=== PATIENT | female | born 1930 | race Caucasian/White ===

== ENCOUNTER 2017-07-14 10:36 | Emergency (ER) | payer MEDICARE, OTHER ==
[~2017-07-14] VITALS: Ht 157.5 cm; Wt 55.8 kg
[~2017-07-14 10:36] MED LIST: ACETAMINOPHEN-1 EAC1 PO; ACTOS15 MG; ASPIR-LOW81 MG PO; BENTYL10 MG; CEPHALEXIN500 MG PO; CIPROFLOXACIN500 M1 PO; COLESTID1 GM PO; FLEXERIL PO; GLUCOPHAGE500 MG; HYDROCODON-ACE1 EACH PO; IBUPROFEN 200200 M1 PO; IBUPROFEN 600600 M1 PO; JANUVIA25 MG PO; LIPITOR 20 MG T20 M1 PO; METFORMIN HCL500 MG PO; METOPROLOL TART25 MG PO; MULTIVITAMINS1 EAC7; NORCO 5-325 TA1 EACH PO; NORCO 7.5-3251 EACH PO; PLAVIX 75 MG TA75 MG PO; TRAMADOL 50 MG50 MG PO; VASOTEC10 MG PO; [UNRECOGNIZED DRUG - OTHER]
[2017-07-14] MEDS ORDERED: AMARYL2 MG PO (10:46)
[2017-07-14 11:14] LABS: ABSOLUTE LYMPHOCYTES 0.9 thou/uL (0.8-5.3); ABSOLUTE MONOCYTES 0.4 thou/uL (0.0-1.2); ABSOLUTE NEUTROPHILS 6.5 thou/uL (1.6-8.1); BASOPHILS 0.3 %; EOSINOPHILS 0.1 %; HEMATOCRIT 41.9 % (37.0-47.0); HEMOGLOBIN 14.5 gm/dL (12.0-15.0); LYMPHOCYTES 11.7 %; MCH 30.3 pg (26.0-34.0); MCHC 34.5 g/dL (28.0-37.0); MCV 87.9 fL (80.0-100.0); MONOCYTES 5.2 %; MPV 8.2 fl. (7.2-11.1); NUCLEATED RBCS 0 /100WBC; PLATELET COUNT* 189 thou/uL (150-400); POLYS 82.7 %; RBC 4.77 mil/uL (4.20-5.00); RDW-CV 13.5 % (10.5-14.5); WBC 7.9 thou/uL (4.0-11.0)
[2017-07-14 11:25] LABS: CALCIUM 9.5 mg/dL (8.5-10.1); CREATININE 1.1 mg/dL (0.6-1.3); POTASSIUM 4.2 mmol/L (3.5-5.1)
[2017-07-14 11:30] LABS: ALBUMIN 4.1 g/dL (3.4-5.0); TOTAL BILIRUBIN 1.2 mg/dL (<0.1-1.0)
[2017-07-14] MEDS ORDERED: ACETAMINOPHEN-1 EAC1 PO (12:47)
[2017-07-14 13:15] VITALS: BP 164/105
== END 2017-07-14 13:16 | disposition home or self-care (01) ==
LOC: M.ERS 10:36
PROVIDERS: Nurse Practitioner Family
DX: M25.552 Pain in left hip (principal); M25.512 Pain in left shoulder; R07.81 Pleurodynia; E11.9 Type 2 diabetes mellitus without complications; I10 Essential (primary) hypertension; E78.00 Pure hypercholesterolemia, unspecified; Z90.710 Acquired absence of both cervix and uterus; Z90.49 Acquired absence of other specified parts of digestive tract; Z96.641 Presence of right artificial hip joint; Z88.0 Allergy status to penicillin; Z88.6 Allergy status to analgesic agent; W01.0XXA Fall on same level from slipping, tripping and stumbling without subsequent striking against object, initial encounter; Y93.89 Activity, other specified; Y92.89 Other specified places as the place of occurrence of the external cause; Y99.8 Other external cause status

== ENCOUNTER 2017-07-23 12:27 | Inpatient (IN) | payer MEDICARE, OTHER ==
[~2017-07-23] VITALS: Ht 162.6 cm; Wt 58.7 kg
[~2017-07-23 12:27] MED LIST changes: +AMARYL2 MG PO
[2017-07-23 12:44] VITALS: BP 138/86
[2017-07-23 13:36] LABS: ABSOLUTE BASOPHILS 0.1 thou/uL (0.0-0.2); ABSOLUTE EOSINOPHILS 0.1 thou/uL (0.0-0.7); ABSOLUTE LYMPHOCYTES 1.2 thou/uL (0.8-5.3); ABSOLUTE MONOCYTES 0.4 thou/uL (0.0-1.2); ABSOLUTE NEUTROPHILS 3.9 thou/uL (1.6-8.1); BASOPHILS 1.1 %; EOSINOPHILS 1.9 %; HEMATOCRIT 39.4 % (37.0-47.0); HEMOGLOBIN 13.5 gm/dL (12.0-15.0); LYMPHOCYTES 20.7 %; MCH 30.1 pg (26.0-34.0); MCHC 34.2 g/dL (28.0-37.0); MONOCYTES 6.4 %; MPV 7.4 fl. (7.2-11.1); NUCLEATED RBCS 0 /100WBC; PLATELET COUNT* 293 thou/uL (150-400); POLYS 69.9 %; RBC 4.48 mil/uL (4.20-5.00); RDW-CV 13.3 % (10.5-14.5); WBC 5.6 thou/uL (4.0-11.0)
[2017-07-23 13:42] LABS: ANION GAP 9 mmol/L (7-16); BUN 28 mg/dL (7-18); CALCIUM 9.5 mg/dL (8.5-10.1); CHLORIDE 102 mmol/L (98-107); CO2 30 mmol/L (21-32); CREATININE 0.9 mg/dL (0.6-1.3); GLUCOSE 172 mg/dL (70-99); POTASSIUM 3.6 mmol/L (3.5-5.1); SODIUM 141 mmol/L (136-145)
[2017-07-23 13:45] LABS: APTT 28.9 Seconds (25.0-31.3)
[2017-07-23 13:54] LABS: ALBUMIN 3.9 g/dL (3.4-5.0); ALKALINE PHOSPHATASE 147 U/L (46-116); LIPASE 74 U/L (73-393); NT-PRO BRAIN NAT PEPTIDE 899 pg/mL (<300); SGOT 16 U/L (15-37); SGPT 16 U/L (30-65); TOTAL BILIRUBIN 0.8 mg/dL (<0.1-1.0); TOTAL PROTEIN 7.9 g/dL (6.4-8.2); TROPONIN-I LEVEL <0.06 ng/mL (<0.06)
[2017-07-23 14:43] LABS: URINE BILIRUBIN NEGATIVE (Negative); URINE BLOOD NEGATIVE (Negative); URINE CLARITY CLEAR; URINE COLOR YELLOW; URINE GLUCOSE-RANDOM NEGATIVE (Negative); URINE KETONES NEGATIVE (Negative); URINE LEUKOCYTES-REFLEX 3+ (Negative); URINE NITRITE-REFLEX POSITIVE (Negative); URINE PROTEIN NEGATIVE (Negative); URINE UROBILINOGEN 0.2 E.U./dl (0.2-1.0)
[2017-07-23 14:50] LABS: CASTS None Seen /LPF (None Seen); CRYSTALS None Seen /LPF (None Seen); MUCUS 0-3 Light strn/LPF (None Seen); SQUAMOUS 0-3 Few /LPF (0-3); URINE RBC >20 Many /HPF (0-2); URINE WBC-REFLEX None Seen /HPF (0-5)
--- NOTE | 2017-07-23 15:31 | EKG ---
[place] [address] ELECTROCARDIOGRAM REPORT Name: MARLON HOPKINS Room: [facility]#: [id number] Admission: 07/23/17 Attend Phys: Discharge: Date of : 32 Report #: [id number] THIS REPORT FOR: //name// [facility] ED Test Date: 2017-07-23 Test Time: 13:32:33 Pat Name: MARLON HOPKINS Department: Room: Gender: F Accounting Assistant: Pauly ALVES : 1930 Requested By: Nasim Puentes Order Number: [id number] MD: Xavier Chaves Measurements Intervals [place] Rate: 97 P: 71 HI: 176 QRS: 19 QRSD: 91 T: 161 QT: 355 QTc: 451 Interpretive Statements Sinus rhythm Probable LVH with secondary repol abnrm Compared to ECG 04/13/2015 08:40:59 Sinus tachycardia no longer present Atrial premature complex(es) no longer present Electronically Signed On 07-23-2017 15:31:14 CDT by Xavier Chaves [email or web address] <ELECTRONICALLY SIGNED> By: Xavier Chaves MD, [facility] 07/23/17 1531 1332 1332 Xavier Chaves MD, [facility] /EPI
[2017-07-23 17:30] VITALS: BP 140/78
[2017-07-23 17:33] VITALS: BP 165/92
[2017-07-23] MEDS ORDERED: ALEVE220 MG PO (19:05)
[2017-07-23] MEDS ORDERED: UNICOMPLEX M TA1 TA1 PO (19:05)
--- NOTE | 2017-07-23 20:48 | NUR ---
ASSUMED CARES OF PT AT 1730. PT TRANSFERRED FROM E.D. BED TO ROOM BED WITH 3 PEOPLE ASSIST AND DRAW SHEET TRANSFER. BED IN LOW LOCKED POSITION, CALL BUTTON AND PERSONAL BELONGINGS IN PT REACH. PT A&O X4 BUT FORGETFUL, WILL REPEAT HERSELF. SINUS RHYTHM/TACHYCARDIA NOTED ON ELECTRONIC WIRER. VSS ON RA. PT WEAK, ONE TO TWO ASSIST TO BEDSIDE COMMODE. PT HAS HAD MULTIPLE FALLS OVER THE LAST TWO WEEKS, SCATTERED BRUISING ALL OVER BODY, PRIMARILY ON LEFT SIDE. AFEBRILE, PERRLA, PT PLEASANT AND COOPERATIVE. RIGHT AC IV 20 GAUGE PATENT TO FLUSH AND NS/75 ML/HR. LEGS WEAK, PT USES W/C AND WALKER AT HOME. ADMISSION COMPLETED. LCTAB. ABD SOFT TO PALPATE BUT TENDER R/T FALLS PT STATED. SKIN INTACT. HOURLY ROUNDING COMPLETED. REPORT TO FIELD MARKETING LEAD FOR CONTINUED CARES. FALL PRECAUTIONS IN PLACE. NEPHROLOGY CONSULTED.
[2017-07-24] VITALS: BP 151/83
[2017-07-24 04:35] VITALS: BP 155/98
[2017-07-24 05:09] LABS: ABSOLUTE BASOPHILS 0.1 thou/uL (0.0-0.2); ABSOLUTE EOSINOPHILS 0.2 thou/uL (0.0-0.7); ABSOLUTE LYMPHOCYTES 1.5 thou/uL (0.8-5.3); ABSOLUTE MONOCYTES 0.5 thou/uL (0.0-1.2); ABSOLUTE NEUTROPHILS 4.8 thou/uL (1.6-8.1); BASOPHILS 0.9 %; EOSINOPHILS 2.6 %; HEMATOCRIT 35.5 % (37.0-47.0); HEMOGLOBIN 12.2 gm/dL (12.0-15.0); LYMPHOCYTES 21.3 %; MCH 30.2 pg (26.0-34.0); MCHC 34.5 g/dL (28.0-37.0); MCV 87.5 fL (80.0-100.0); MONOCYTES 6.8 %; MPV 7.8 fl. (7.2-11.1); NUCLEATED RBCS 0 /100WBC; PLATELET COUNT* 275 thou/uL (150-400); POLYS 68.4 %; RBC 4.05 mil/uL (4.20-5.00); RDW-CV 13.2 % (10.5-14.5)
[2017-07-24 05:29] LABS: ALBUMIN 3.2 g/dL (3.4-5.0); CREATININE 0.9 mg/dL (0.6-1.3); POTASSIUM 4.2 mmol/L (3.5-5.1); TOTAL BILIRUBIN 0.4 mg/dL (<0.1-1.0); TOTAL PROTEIN 6.3 g/dL (6.4-8.2)
--- NOTE | 2017-07-24 07:07 | NUR ---
PATIENT RESTED IN BED. NO ACUTE CHANGES. PATIENT DID NOT SHOW SIGNS OF DISTRESS. FALL PRECAUTIONS IN PLACE, BED ALARM ON, CALL LIGHT WITHIN REACH.
--- NOTE | 2017-07-24 09:17 | NUR ---
RECEIVED REPORT AND ASSUMED CARE AT 0730. VSS. CARDIAC MONITORING IN PLACE. PT COMPLAINS OF PAIN WITH MOVEMENT. PRN MEDICATION OFFERED. ASSESSMENT COMPLETED CHARTED. ISCUSSED PLAN OF CARE WITH PT, VERBALIZED UNDERSTANDING. CALL LIGHT WITHIN REACH, BED IN LOWEST POSITION, BED ALARM ON. NO ANTIBIOTICS NOTED ON EMAR, WILL NOTIFY PHYSICIAN. WILL CONTINUE TO MONITOR FOR REMAINDER OF THE SHIFT.
[2017-07-24 11:04] VITALS: BP 142/79
--- NOTE | 2017-07-24 14:42 | NUR ---
CM ASSESSMENT: Pt is A&O. Resides at home alone. Independent with ADLs. Pt states that she hires someone to come in and clean. Pt is able to cook, but doesn't cook very often, she goes out to for meals with friends. Pt has a walker and cane, but states that she does not use either of them right now. [facility]. Hx of skilled at [facility]. [place] open [place]. Cm following.
[2017-07-24 16:04] VITALS: BP 166/94
--- NOTE | 2017-07-24 17:36 | NUR ---
PT RESTING IN ROOM. VSS. CARDIAC MONIORING IN PLACE. PT UP WITH 1-2 TO BS, ON RA. RENAL US SCHEDULED FOR 07/25/17. ORHO WAS CONSULTED FOR BROKEN CLAVICAL, NOT PLANNING SURGERY AT THIS TIME. PT WANTING TO GO HOME TO SEE HER PETS. STATES SHE UNDERSTANDS SHE WILL BE STAYING AT LEAST FOR THE NIGHT. DISCUSSED PLAN OF CARE WITH PT. VERBALIZED UNDERSTANDING. PT WORKING TOWARDS GOALS. PT/OT ORDERED. WILL CONINUE TO MONITOR FOR REMAINDER OF THE SHIFT.
[2017-07-24 20:00] VITALS: BP 162/97
[2017-07-25] VITALS (7 sets, daily range): BP systolic 129–178; BP diastolic 66–101
[2017-07-25 05:03] LABS: ABSOLUTE BASOPHILS 0.1 thou/uL (0.0-0.2); ABSOLUTE EOSINOPHILS 0.2 thou/uL (0.0-0.7); ABSOLUTE LYMPHOCYTES 1.9 thou/uL (0.8-5.3); ABSOLUTE MONOCYTES 0.5 thou/uL (0.0-1.2); ABSOLUTE NEUTROPHILS 3.5 thou/uL (1.6-8.1); BASOPHILS 1.1 %; HEMATOCRIT 37.3 % (37.0-47.0); HEMOGLOBIN 12.8 gm/dL (12.0-15.0); LYMPHOCYTES 30.4 %; MCHC 34.3 g/dL (28.0-37.0); MCV 87.7 fL (80.0-100.0); MONOCYTES 7.5 %; MPV 7.7 fl. (7.2-11.1); NUCLEATED RBCS 0 /100WBC; PLATELET COUNT* 279 thou/uL (150-400); RBC 4.25 mil/uL (4.20-5.00); RDW-CV 13.2 % (10.5-14.5); WBC 6.2 thou/uL (4.0-11.0)
--- NOTE | 2017-07-25 05:38 | NUR ---
PATIENT RESTED IN BED. NO ACUTE CHANGES. PAITNET DID NOT SHOW SIGNS OF DISTRESS. BED ALARM ON, FALL PRECAUTIONS IN PLACE, HOURLY ROUNDING OBSERVE, PATIENT WAS TURND EVERY TWO HOURS WITH INSTRUTION, CALL LIGHT WITHIN REACH. PATIENT VITALS WERE STABLE.
[2017-07-25 05:45] LABS: ALBUMIN 3.2 g/dL (3.4-5.0); POTASSIUM 4.9 mmol/L (3.5-5.1); TOTAL BILIRUBIN 0.5 mg/dL (<0.1-1.0); TOTAL PROTEIN 6.5 g/dL (6.4-8.2)
--- NOTE | 2017-07-25 05:50 | NUR ---
PATIENT RESTED IN BED. NO ACUTE CHANGES, PATIENT DID NOT SHOW SIGNS OF DISTRESS.
--- NOTE | 2017-07-25 08:14 | NUR ---
ASSUMED PT CARE AT 7:15 . RECEIVED REPORT FROM NURSE. PT IS ALERT AWAKE ORIENTED X 3 TO 4. VITALS SIGNS TAKEN WITHIN NORMAL LIMIT EXCEPT FOR BP 163/100. MEDICATIONS ADMINISTERED SCHEDULE. WILL MONITOR BEFORE TRANSFER DOWN TO [facility]. PT DOES NOT COMPLAIN OF ANY PAIN. FULL ASSESSMENT PERFORMED. BED IS AT LOWEST POSITION, SIDE RAILS UP X4. CALL LIGHT AT REACH. SINUS TACHY ON THE MONITOR. PLAN IS TO ADMINISTER IV ANTIBIOTICS, MAINTAIN NORMAL BP, PREVENT FALL , ULTRASOUND OF KIDNEY. WILL CONTINUE TO MONITOR.
--- NOTE | 2017-07-25 11:00 | NUR ---
IVPB LEVOFLOXACIN NOT ADMINISTERED AT 1100 BECAUSE PO FORM OF LEVOFLOXACIN WAS ADMINISTERED THIS AM A 0900. COMMUNICATED TO STUDENT
--- NOTE | 2017-07-25 13:48 | NUR ---
Pt wants to go to skilled at dc, faxed referral to [facility] per Pt/son. Anticipate that Pt will be ready to dc tomorrow.
--- NOTE | 2017-07-25 19:05 | NUR ---
PT IS STABLE. VITALS SINS WITHIN NORMAL LIMI. NO BM DURING SHIFT. DR SKAGGS WAS NOTIFIED. ORDER SOME COLACE FOR THE NIGHT. PT CONSUMED ALL MEALS INDEPENDENTLY. USED THE BED SIDE COMMODE TO URINATE X 4 DURING THE SHIFT. GETS UP WITH ASSISTANCE. NO PAIN LEVEL AT HIS TIME. PAIN WAS CONTROLLED BY MEDICATIONS. PLAN FOR POSSIBLE DISCHARGE TOMORROW RENAL US RESULT WAS NORMAL
[2017-07-26 00:10] VITALS: BP 152/87
--- NOTE | 2017-07-26 02:40 | NUR ---
RECIEVED REPORT AND ASSUMED CARE OF PATIENT AT 1930. FRONT DESK TEAM MEMBER IN PLACE TRACING SR. ASSESSMENT AND VITALS COMPLETED CHARTED, VSS. PATIENT ON ROOM AIR WITH O2 SATS >92%. PATIENT DENIES PAIN AND DISCOMFORT. GOAL IS COMPLIANCE WITH LEFT UPPER EXT NWB STATUS AND PAIN MANAGEMENT NEEDED. CALL LIGHT WITHIN REACH
[2017-07-26 03:52] VITALS: BP 155/69
--- NOTE | 2017-07-26 04:44 | NUR ---
PATIENT PARTIALLY PROGRESSING TOWARDS GOALS: PATIENT NEEDS FREQUENT REMINDERS TO REMAIN NWB OF LEFT UPPER EXT. PATIENT HAS NOT REQUIRED ANY PAIN MEDICATION THIS SHIFT AND DENIES PAIN AND DISCOMFORT. HOURLY ROUNDING OBSERVED. CALL LIGHT WITHIN REACH
[2017-07-26 05:24] LABS: ABSOLUTE BASOPHILS 0.1 thou/uL (0.0-0.2); ABSOLUTE EOSINOPHILS 0.2 thou/uL (0.0-0.7); ABSOLUTE LYMPHOCYTES 1.4 thou/uL (0.8-5.3); ABSOLUTE MONOCYTES 0.4 thou/uL (0.0-1.2); ABSOLUTE NEUTROPHILS 3.5 thou/uL (1.6-8.1); BASOPHILS 0.9 %; EOSINOPHILS 3.8 %; HEMATOCRIT 35.9 % (37.0-47.0); HEMOGLOBIN 12.2 gm/dL (12.0-15.0); LYMPHOCYTES 24.6 %; MCH 30.1 pg (26.0-34.0); MCV 88.4 fL (80.0-100.0); MONOCYTES 7.9 %; MPV 7.3 fl. (7.2-11.1); NUCLEATED RBCS 0 /100WBC; PLATELET COUNT* 265 thou/uL (150-400); POLYS 62.8 %; RBC 4.07 mil/uL (4.20-5.00); RDW-CV 13.2 % (10.5-14.5); WBC 5.7 thou/uL (4.0-11.0)
[2017-07-26 06:30] LABS: ALBUMIN 2.9 g/dL (3.4-5.0); CALCIUM 8.7 mg/dL (8.5-10.1); CREATININE 0.9 mg/dL (0.6-1.3); POTASSIUM 4.4 mmol/L (3.5-5.1); TOTAL BILIRUBIN 0.5 mg/dL (<0.1-1.0)
[2017-07-26 08:00] VITALS: BP 130/91
--- NOTE | 2017-07-26 09:58 | NUR ---
ASSUMED CARE OF PT THIS AM AROUND 729. REFER TO ASSESSMENT. PT VOICES NO CONCERNS THIS AM. VSS. TELE SR. NO OTHER CONCERNS AT THIS TIME. CLWR. WCTM.
[2017-07-26 12:32] VITALS: BP 150/97
[2017-07-26] MEDS ORDERED: LEVOFLOXACIN750 MG PO (13:20)
[2017-07-26 13:25] VITALS: BP 150/97
--- NOTE | 2017-07-26 13:26 | NUR ---
Pt discharging to [facility] today. Faxed dc orders. Chart copied. Nurse report number provided, . Updated Pt's son of disposition. Facility to seed cone picker at 4pm.
--- NOTE | 2017-07-26 15:20 | CON ---
[address] [address] CONSULTATION Name: HOPKINSMARLON J Room: [address] IN M.R.#: [id number] Admission: 07/23/17 Attend Phys: Navid Cope Discharge: Date of : 31 Report #: [id number] THIS REPORT FOR: //name// CC: Tevin Jorgensen DATE OF SERVICE: 07/24/2017 REQUESTING PHYSICIAN: Rahul Jorgensen DO. REASON FOR CONSULTATION: Acute kidney injury. HISTORY OF PRESENT ILLNESS: The patient is an 87-year-old white female admitted to the hospital on 07/23/2017 with a chief complaint of altered mental status. Apparently, her mental status getting worse over the last several days. She was found wandering around with some visual and auditory hallucinations, shows she was brought to the hospital and got admitted. PAST MEDICAL HISTORY: Significant for 1. Diabetes mellitus type 2. 2. Hypertension. 3. Dyslipidemia. FAMILY HISTORY: Noncontributory. SOCIAL HISTORY: No current tobacco or alcohol abuse. REVIEW OF SYSTEMS: Positive for some pain in right flank area. She denies having any guns or hallucinations now. She is awake, alert, oriented. No chest pain, no shortness of breath. She still feels weak. PHYSICAL EXAMINATION: GENERAL: Awake, alert, oriented. VITAL SIGNS: Blood pressure is 166/94, heart rate is 81, afebrile. HEENT: Pupils are round. NECK: Supple. Oral mucosa is dry. LUNGS: Clear. CARDIOVASCULAR: Regular rate. ABDOMEN: Soft. LOWER EXTREMITIES: No edema. LABORATORY DATA: Her BUN 26, creatinine 0.9. Serum sodium 141, potassium 4.2. Urine showed 3+ leukocyte esterase and bacteria. ASSESSMENT: [address] [address] CONSULTATION Name: MARLON HOPKINS Room: [address]#: [id number] Admission: 07/23/17 Attend Phys: Navid Cope Discharge: Date of : 31 Report #: [id number] 1. An 87-year-old female with confusion, likely due to urinary tract infection. 2. Urinary tract infection. 3. The patient's volume status, she is dry. PLAN: Continue with antibiotics, but I would stop her Bactrim, ____ to Levaquin. <ELECTRONICALLY SIGNED> By: Mj Reed MD 07/26/17 1520 1606 0354Alexzuleika Reed MD /nt
--- NOTE | 2017-07-26 15:28 | NUR ---
REPORT GIVEN TO [facility] NURSE DONNY AT THIS TIME. PT EXPECTED TO TRANSFER AROUND 1600. [facility].
--- NOTE | 2017-07-26 16:08 | NUR ---
PT DISCHARGED WITH ALL BELONGINGS AT 1552. PT DC'D WITH W/C VAN AND UNRELATED ADULT TO [facility]. DISCHARGE INSTRUCTIONS SENT WITH PT TO [facility]. NO CONCERNS AT THIS TIME.
--- NOTE | 2017-07-27 11:40 | EKG ---
[place] [address] ELECTROCARDIOGRAM REPORT Name: MARLON HOPKINS Room: [address] IN M.R.#: [id number] Admission: 07/23/17 Attend Phys: Navid Cope Discharge: 07/26/17 Date of : 31 Report #: [id number] THIS REPORT FOR: //name// [facility] ED Test Date: 2017-07-26 Test Time: 22:41:29 Pat Name: MARLON HOPKINS Department: Room: [facility] Gender: F Dispute Coordinator: GEORGIE Coats : 1930 Requested By: Larisa Flores Order Number: [id number] MD: Xavier Chaves Measurements Intervals [place] Rate: 115 P: 62 MA: 171 QRS: 1 QRSD: 93 T: 174 QT: 316 QTc: 437 Interpretive Statements Sinus tachycardia LVH with secondary repolarization abnormality Anterior Q waves, possibly due to LVH Compared to ECG 07/23/2017 13:32 Sinus rhythm no longer present Electronically Signed On 07-27-2017 11:40:21 CDT by Xavier Chaves [email or web address] <ELECTRONICALLY SIGNED> By: Xavier Chaves MD, [facility] 07/27/17 1140 2241 2241 Xavier Chaves MD, [facility] /EPI
--- NOTE | 2017-07-27 11:41 | EKG ---
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 [employer] Clippings: GEORGIE Coats : 1930 Requested By: Larisa Flores Order Number: [id number] MD: Xavier Chaves Measurements Intervals [place] Rate: 110 P: 65 [place]: 175 QRS: -5 QRSD: 93 T: 167 QT: 317 QTc: 429 Interpretive Statements Sinus tachycardia Multiple premature complexes, vent & supraven LVH with secondary repolarization abnormality Electronically Signed On 07-27-2017 11:41:20 CDT by Xavier Chaves [email or web address] <ELECTRONICALLY SIGNED> By: Xavier Chaves MD, [facility] 07/27/17 1141 0038 0038 Xavier Chaves MD, [facility] /EPI
== END 2017-07-26 15:52 | DRG 542 ==
LOC: M.ERS 12:27 → M.TBA-ER 16:26 → M.2W 16:26
PROVIDERS: Nurse Practitioner Family; ADMIT Internal Medicine
DX: M80.012A Age-related osteoporosis with current pathological fracture, left shoulder, initial encounter for fracture (principal); G93.40 Encephalopathy, unspecified; N39.0 Urinary tract infection, site not specified; N17.9 Acute kidney failure, unspecified; R65.10 Systemic inflammatory response syndrome (SIRS) of non-infectious origin without acute organ dysfunction; M51.34 Other intervertebral disc degeneration, thoracic region; E11.9 Type 2 diabetes mellitus without complications; E78.5 Hyperlipidemia, unspecified; Z96.649 Presence of unspecified artificial hip joint; I10 Essential (primary) hypertension; E78.00 Pure hypercholesterolemia, unspecified; Z90.49 Acquired absence of other specified parts of digestive tract; Z90.710 Acquired absence of both cervix and uterus; Z88.0 Allergy status to penicillin; Z79.899 Other long term (current) drug therapy

== ENCOUNTER 2017-07-26 22:18 | Emergency (ER) | payer OTHER ==
[~2017-07-26] VITALS: Ht 152.4 cm; Wt 47.6 kg
[~2017-07-26 22:18] MED LIST changes: +ALEVE220 MG PO; +LEVOFLOXACIN750 MG PO; +UNICOMPLEX M TA1 TA1 PO
[2017-07-26 22:19] VITALS: BP 200/114
[2017-07-26 22:42] LABS: HEMATOCRIT 37.6 % (37.0-47.0); HEMOGLOBIN 12.8 gm/dL (12.0-15.0); MCH 29.8 pg (26.0-34.0); MCV 87.6 fL (80.0-100.0); MPV 7.6 fl. (7.2-11.1); NUCLEATED RBCS 0 /100WBC; PLATELET COUNT* 283 thou/uL (150-400); RBC 4.29 mil/uL (4.20-5.00); RDW-CV 13.2 % (10.5-14.5); WBC 9.7 thou/uL (4.0-11.0)
[2017-07-26 22:50] LABS: ANION GAP 9 mmol/L (7-16); BUN 27 mg/dL (7-18); CALCIUM 8.9 mg/dL (8.5-10.1); CHLORIDE 105 mmol/L (98-107); CO2 24 mmol/L (21-32); GLUCOSE 250 mg/dL (70-99); POTASSIUM 3.9 mmol/L (3.5-5.1); SODIUM 138 mmol/L (136-145)
[2017-07-26 22:57] LABS: ALBUMIN 3.2 g/dL (3.4-5.0); ALKALINE PHOSPHATASE 188 U/L (46-116); SGOT 19 U/L (15-37); SGPT 22 U/L (30-65); TOTAL BILIRUBIN 0.5 mg/dL (<0.1-1.0); TOTAL PROTEIN 7.1 g/dL (6.4-8.2); TROPONIN-I LEVEL <0.06 ng/mL (<0.06)
[2017-07-26 23:01] LABS: ABSOLUTE LYMPHOCYTES 0.6 thou/uL (0.8-5.3); ABSOLUTE MONOCYTES 0.4 thou/uL (0.0-1.2); ABSOLUTE NEUTROPHILS 8.7 thou/uL (1.6-8.1)
[2017-07-26 23:02] LABS: PLATELET ESTIMATE ADEQUATE
[2017-07-27 01:38] VITALS: BP 136/91
== END 2017-07-27 01:38 ==
LOC: M.ERS 22:18 → M.TBA-ER 07-27 00:12
PROVIDERS: Emergency Medicine
DX: S22.040A Wedge compression fracture of fourth thoracic vertebra, initial encounter for closed fracture (principal); S22.060A Wedge compression fracture of T7-T8 vertebra, initial encounter for closed fracture; S22.070A Wedge compression fracture of T9-T10 vertebra, initial encounter for closed fracture; S22.080A Wedge compression fracture of T11-T12 vertebra, initial encounter for closed fracture; S32.010A Wedge compression fracture of first lumbar vertebra, initial encounter for closed fracture; E11.9 Type 2 diabetes mellitus without complications; I10 Essential (primary) hypertension; E78.00 Pure hypercholesterolemia, unspecified; Z96.641 Presence of right artificial hip joint; Z88.0 Allergy status to penicillin; Z88.6 Allergy status to analgesic agent; Z91.81 History of falling; W18.2XXA Fall in (into) shower or empty bathtub, initial encounter; Y93.89 Activity, other specified; Y92.091 Bathroom in other non-institutional residence as the place of occurrence of the external cause; Y99.8 Other external cause status

== ENCOUNTER → 2018-01-30 | Outpatient (CLI) | payer MEDICARE, OTHER ==
[2018-01-30 14:44] LABS: HEMATOCRIT 41.4 % (37.0-47.0); HEMOGLOBIN 13.9 gm/dL (12.0-15.0); MCH 30.2 pg (26.0-34.0); MCHC 33.6 g/dL (28.0-37.0); MCV 90.1 fL (80.0-100.0); MPV 7.8 fl. (7.2-11.1); RBC 4.6 mil/uL (4.20-5.00); RDW-CV 13.8 % (10.5-14.5); WBC 6.6 thou/uL (4.0-11.0)
== END ==
LOC: M.LAB 14:21
PROVIDERS: Orthopaedic Surgery
DX: M25.551 Pain in right hip (principal)

== ENCOUNTER → 2018-02-13 | Outpatient (CLI) | payer MEDICARE, OTHER | LOC: M.NUC 01-30 14:38 | DX: S22.060A Wedge compression fracture of T7-T8 vertebra, initial encounter for closed fracture (principal); X58.XXXA Exposure to other specified factors, initial encounter; Y93.89 Activity, other specified; Y92.89 Other specified places as the place of occurrence of the external cause; Y99.8 Other external cause status ==

== ENCOUNTER 2018-10-04 12:13 | Emergency (ER) | payer OTHER ==
[~2018-10-04] VITALS: Ht 160 cm; Wt 53.8 kg
[2018-10-04] MEDS ORDERED: PERCOCET PO (14:19)
[2018-10-04 15:24] VITALS: BP 152/63
== END 2018-10-04 15:26 | disposition home or self-care (01) ==
LOC: M.ERS 12:13
DX: S22.42XA Multiple fractures of ribs, left side, initial encounter for closed fracture (principal); S40.012A Contusion of left shoulder, initial encounter; I10 Essential (primary) hypertension; E11.9 Type 2 diabetes mellitus without complications; E78.00 Pure hypercholesterolemia, unspecified; Z88.0 Allergy status to penicillin; Z88.8 Allergy status to other drugs, medicaments and biological substances; Z96.641 Presence of right artificial hip joint; Z90.710 Acquired absence of both cervix and uterus; Z90.49 Acquired absence of other specified parts of digestive tract; W01.0XXA Fall on same level from slipping, tripping and stumbling without subsequent striking against object, initial encounter; Y92.89 Other specified places as the place of occurrence of the external cause; Y93.89 Activity, other specified; Y99.8 Other external cause status

== ENCOUNTER 2019-08-03 19:35 | Emergency (ER) | payer OTHER ==
[~2019-08-03] VITALS: Ht 160 cm; Wt 53.5 kg
[~2019-08-03 19:35] MED LIST changes: +PERCOCET PO
[2019-08-03 21:30] VITALS: BP 103/70
[2019-08-03] MEDS ORDERED: ZOFRAN ODT4 MG PO (21:30)
--- NOTE | 2019-08-04 10:59 | EKG ---
[place] [address] ELECTROCARDIOGRAM REPORT Name: MARLON HOPKINS Room: [facility]#: [id number] Admission: 08/03/19 Attend Phys: Discharge: 08/03/19 Date of : 32 Date of Service: 08/03/192016 Report #: [id number] THIS REPORT FOR: //name// [facility] ED Test Date: 2019-08-03 Test Time: 20:17:32 Pat Name: MARLON HOPKINS Department: Room: Gender: Fixed Income Director: : 1930 Requested By: Larsia Flores Order Number: [id number] MD: Thompson Vazquez Measurements Intervals [place] Rate: 102 P: 48 FL: 181 QRS: 19 QRSD: 94 T: 200 QT: 338 QTc: 441 Interpretive Statements Sinus tachycardia Multiple ventricular premature complexes LVH with secondary repolarization abnormality Compared to ECG 07/27/2017 00:38:27 Ventricular premature complex(es) now present Electronically Signed On 08-04-2019 10:58:12 CDT by Thompson Vazquez [email or web address] <ELECTRONICALLY SIGNED> By: Thompson Vazquez MD, FACC 08/04/19 1058 16 16 Thompson Vazquez MD, FAC /EPI
== END 2019-08-03 21:30 | disposition home or self-care (01) ==
LOC: M.ERS 19:35
DX: S01.01XA Laceration without foreign body of scalp, initial encounter (principal); S40.011A Contusion of right shoulder, initial encounter; M54.2 Cervicalgia; M54.6 Pain in thoracic spine; I10 Essential (primary) hypertension; E11.9 Type 2 diabetes mellitus without complications; E78.00 Pure hypercholesterolemia, unspecified; Z96.641 Presence of right artificial hip joint; Z90.710 Acquired absence of both cervix and uterus; Z90.49 Acquired absence of other specified parts of digestive tract; Z88.0 Allergy status to penicillin; Z88.8 Allergy status to other drugs, medicaments and biological substances; W01.0XXA Fall on same level from slipping, tripping and stumbling without subsequent striking against object, initial encounter; Y93.89 Activity, other specified; Y92.89 Other specified places as the place of occurrence of the external cause; Y99.8 Other external cause status

== ENCOUNTER 2019-08-15 16:16 | Emergency (ER) | payer OTHER ==
[~2019-08-15] VITALS: Ht 160 cm; Wt 54.9 kg
[~2019-08-15 16:16] MED LIST changes: +ZOFRAN ODT4 MG PO
[2019-08-15 16:40] VITALS: BP 127/92
== END 2019-08-15 16:40 | disposition home or self-care (01) ==
LOC: M.ERS 16:16
DX: S01.01XD Laceration without foreign body of scalp, subsequent encounter (principal); E11.9 Type 2 diabetes mellitus without complications; I10 Essential (primary) hypertension; E78.00 Pure hypercholesterolemia, unspecified; Z90.710 Acquired absence of both cervix and uterus; Z90.49 Acquired absence of other specified parts of digestive tract; Z96.641 Presence of right artificial hip joint; Z88.0 Allergy status to penicillin; Z88.8 Allergy status to other drugs, medicaments and biological substances; X58.XXXD Exposure to other specified factors, subsequent encounter

== ENCOUNTER 2019-11-16 10:03 | Inpatient (IN) | payer MEDICARE, OTHER ==
[~2019-11-16] VITALS: Ht 157.5 cm; Wt 47.8 kg
[2019-11-16 10:10] VITALS: BP 141/93
[2019-11-16] MEDS ORDERED: METFORMIN HCL500 M3 PO (10:21)
[2019-11-16 10:40] LABS: NUCLEATED RBCS 0 /100WBC; WBC 6.8 thou/uL (4.0-11.0)
[2019-11-16 10:47] LABS: HEMATOCRIT 40.7 % (37.0-47.0); HEMOGLOBIN 14.1 gm/dL (12.0-15.0); MCH 30.1 pg (26.0-34.0); MCHC 34.6 g/dL (28.0-37.0); MCV 87.1 fL (80.0-100.0); MPV 8.5 fl. (7.2-11.1); PLATELET COUNT* 212 thou/uL (150-400); RBC 4.67 mil/uL (4.20-5.00); RDW-CV 14.2 % (10.5-14.5)
[2019-11-16 10:50] LABS: APTT 27.7 Seconds (25.0-31.3); CALCIUM 8.4 mg/dL (8.5-10.1); CREATININE 1.2 mg/dL (0.6-1.3); INR 1.1; POTASSIUM 3.1 mmol/L (3.5-5.1); PROTIME 10.9 Seconds (9.20-11.50)
[2019-11-16 10:54] LABS: ALBUMIN 3.5 g/dL (3.4-5.0); TOTAL PROTEIN 7.6 g/dL (6.4-8.2)
[2019-11-16 11:09] LABS: ABSOLUTE EOSINOPHILS 0.1 thou/uL (0.0-0.7); ABSOLUTE LYMPHOCYTES 0.6 thou/uL (0.8-5.3); ABSOLUTE MONOCYTES 0.1 thou/uL (0.0-1.2); MICROCYTES 1+
[2019-11-16 11:10] LABS: PLATELET ESTIMATE ADEQUATE
[2019-11-16 14:25] LABS: URINE BILIRUBIN NEGATIVE (Negative); URINE BLOOD 1+ (Negative); URINE CLARITY CLEAR; URINE GLUCOSE-RANDOM 1+ (Negative); URINE KETONES TRACE (Negative); URINE LEUKOCYTES-REFLEX TRACE (Negative); URINE NITRITE-REFLEX NEGATIVE (Negative); URINE PROTEIN 3+ (Negative); URINE SPECIFIC GRAVITY >= 1.030 (1.005-1.030); URINE UROBILINOGEN 0.2 E.U./dl (0.2-1.0)
[2019-11-16 14:44] LABS: URINE COLOR CLOUDY
[2019-11-16 14:45] LABS: SQUAMOUS 0-3 Few /LPF (0-3); URINE WBC-REFLEX >25 Many /HPF (0-5)
[2019-11-16 14:46] LABS: BACTERIA-REFLEX >30 Many /HPF (None Seen); CASTS None Seen /LPF (None Seen); CRYSTALS None Seen /LPF (None Seen); URINE RBC 3-10 Few /HPF (0-2)
[2019-11-16 15:00] VITALS: BP 158/85
[2019-11-16 16:00] VITALS: BP 160/91
[2019-11-16 17:39] LABS: CALCIUM 8.4 mg/dL (8.5-10.1); CREATININE 1.2 mg/dL (0.6-1.3); MAGNESIUM 1.8 mg/dL (1.8-2.4); POTASSIUM 3.3 mmol/L (3.5-5.1)
[2019-11-16 20:00] VITALS: BP 197/104
[2019-11-16 21:00] VITALS: BP 107/77
[2019-11-17] VITALS: BP 148/85
[2019-11-17 04:00] VITALS: BP 151/78
[2019-11-17 08:00] VITALS: BP 147/83
[2019-11-17 09:27] LABS: CHOLESTEROL 201 mg/dL (<200); HDL CHOLESTEROL 56 mg/dL (>40); LDL CHOLESTEROL 120 mg/dL (<100); SERUM ASSESSMENT Clear; TC:HDL 3.6 Ratio (Not establshd); TRIGLYCERIDE 126 mg/dL (<150); VLDL 25 mg/dL (<40)
--- NOTE | 2019-11-17 11:06 | EKG ---
[place] [address] ELECTROCARDIOGRAM REPORT Name: MARLON HOPKINS Room: [address] ADM IN M.R.#: [id number] Admission: 11/16/19 Attend Phys: Merari Weber Discharge: Date of : 32 Date of Service: 11/16/19 1041 Report #: [id number] THIS REPORT FOR: //name// [facility] ED Test Date: 2019-11-16 Test Time: 10:41:36 Pat Name: MARLON HOPKINS Department: Room: [facility] Gender: F Senior Risk Manager: EDIN : 1930 Requested By: Ish Urbina Order Number: [id number] MD: Thompson Vazquez Measurements Intervals [place] Rate: 82 P: -26 [place]: 153 QRS: 6 QRSD: 108 T: 179 QT: 395 QTc: 462 Interpretive Statements Sinus rhythm Atrial premature complex LVH with secondary repolarization abnormality Compared to ECG 08/03/2019 20:17:32 Atrial premature complex(es) now present Sinus tachycardia no longer present Ventricular premature complex(es) no longer present Electronically Signed On 11-17-2019 11:06:28 CDT by Thompson Vazquez [email or web address] <ELECTRONICALLY SIGNED> By: Thompson Vazquez MD, FAC 11/17/19 1106 1041 1041 Thompson Vazquez MD, [facility] /EPI
[2019-11-17 12:00] VITALS: BP 133/71
--- NOTE | 2019-11-17 12:26 | CON ---
[address] [address] CONSULTATION Name: HOPKINSMARLON J Room: [address] IN M.R.#: [id number] Admission: 11/16/19 Attend Phys: Jeanie Carrillo Discharge: Date of : 31 Report #: [id number] THIS REPORT FOR: //name// cc: Tevin Andrew Ahmad W. DO ~ THIS REPORT FOR: //name// CC: Tevin Weber DATE OF SERVICE: 11/17/2019 CARDIOLOGY CONSULTATION LOCATION: The patient is in [facility]. HISTORY OF PRESENT ILLNESS: The patient is a pleasant 89-year-old female with history of hypertension. She presented with episodes of falling and alteration of consciousness. She was noted to have an increased troponin of 1.[address] changes, most compatible with a left ventricular strain in the context of left ventricular hypertrophy. When I initially saw her yesterday evening, she seemed appropriate and was a bit anxious, but entirely appropriate. On questioning her this morning, she seems more confused in days but she did morphine sulfate during the night. The patient has risk factors for coronary artery disease including hypertension and diabetes. There is a history of transient SVT on evaluation prior to admission here, which remitted. PAST MEDICAL HISTORY: Remarkable for hypertension, hyperlipidemia, diabetes, and recent falls. SOCIAL HISTORY: The patient has functioned independently. She is not a smoker. REVIEW OF SYSTEMS: GENERAL: Some degree of agitation and confusion on evaluation this morning. CARDIOVASCULAR: She denied chest pain presentation with mild increase in troponin I. PULMONARY: She denies dyspnea. MUSCULOSKELETAL: She notes chronic arthritic complaints afflicting all extremities, particularly lower extremities. Remainder unremarkable. [address] [address] CONSULTATION Name: MARLON HOPKINS Room: [address] IN [facility]#: [id number] Admission: 11/16/19 Attend Phys: Jeanie Carrillo Discharge: Date of : 31 Report #: [id number] PHYSICAL EXAMINATION: GENERAL: Reveals a somewhat frail, little bit confused elderly female. VITAL SIGNS: Blood pressure is 135/70, pulse rate is 74, respirations are 18 per minute. NECK: Jugular venous pressure is normal. CHEST: Clear. CARDIAC: Reveals normal first and second heart sounds with a soft systolic murmur without rubs or gallops. ABDOMEN: Soft. EXTREMITIES: Without edema with intact femoral pulses. EKG reveals sinus rhythm, left ventricular hypertrophy with strain. LABORATORY DATA: Reveals a hemoglobin of 14.1, white blood cell count of 6800 with 212,000 platelets. Troponin was initially elevated at 1.02 with subsequent value 0.66. NT-BNP 899. Sodium 140, potassium 4.3, BUN 27, creatinine 1.2, GFR 42, glucose 226, albumin 3.5. LDL 120, VLDL 25, HDL 56. IMPRESSION: 1. Non-ST segment elevation myocardial infarction, location uncertain. 2. Hypertension with LVH and strain noted on EKG. 3. History of supraventricular tachycardia. 4. Hypertension. 5. Hyperlipidemia. 6. Type 2 diabetes. RECOMMENDATIONS: 1. We will defer catheterization at present in the context of patient's altered mental status. We will review subsequently after the morphine and other sedatives have worn off. 2. Echocardiogram today to assess global and segmental LV function. 3. Troponin I later today to ascertain and continuing a diminution in value. We will follow with you. Thank you for allowing us to see Marlon Hopkins in cardiovascular assessment. <ELECTRONICALLY SIGNED> By: Thompson Vazquez MD, FACC 11/17/19 1226 0954 [id number] Vazquez MD, FACC /nt
--- NOTE | 2019-11-17 13:55 | 2DMMODE ---
[place] [address] 2 D/M-MODE ECHOCARDIOGRAM Name: HOPKINSMARLON Room: [address] IN .R.#: [id number] Admission: 11/16/19 Attend Phys: Merari Weber Discharge: Date of : 32 Date of Service: 11/17/19 1354 Report #: [id number] THIS REPORT FOR: cc: Tevin Andrew,Thompson Sosa MD [facility] ~ APPROVED REPORT Study performed: 11/17/2019 11:43:23 EXAM: Comprehensive 2D, Doppler, and color-flow Echocardiogram Patient Location: In-Patient Room #: 224 Status: routine BSA: 1.47 HR: 58 bpm BP: 147/83 mmHg Rhythm: NSR Other Information Study Quality: Good Indications Non STEMI 2D Dimensions IVSd: 15.49 (7-11mm) LVDd: 38.05 mm PWd: 13.01 (7-11mm) Ascending Ao: 27.24 (22-36mm) LVDs: 26.43 (25-40mm) Aortic Root: 30.47 mm Volumes Left Atrial Volume (Systole) LA ESV Index: 58.00 mL/m2 Aortic Valve AoV Peak Harvey.: 0.92 m/s AO Peak Gr.: 3.37 mmHg LVOT Max P.73 mmHg AO Mean Gr.: 1.95 mmHg LVOT Mean P.83 mmHg LVOT Max V: 0.66 m/s AO V2 VTI: 20.95 cm LVOT Mean V: 0.42 m/s LVOT V1 VTI: 14.20 [place] [address] 2 D/M-MODE ECHOCARDIOGRAM Name: MARLON HOPKINS Room: [address] IN M.R.#: [id number] Admission: 11/16/19 Attend Phys: Merari Weber Discharge: Date of : 32 Date of Service: 11/17/19 1354 Report #: [id number] Mitral Valve E/A Ratio: 1.42 MV Decel. Time: 280.76 ms MV E Max Harvey.: 0.89 m/s MV PHT: 81.42 ms MVA (PHT): 2.70 cm2 TDI E/Lateral E': 14.83 E/Medial E': 17.80 Medial E' Harvey.: 0.05 m/s Lateral E' Harvey.: 0.06 m/s Pulmonary Valve PV Peak Harvey.: 0.70 m/s PV Peak Gr.: 1.94 mmHg Tricuspid Valve RAP Estimate: 5.00 mmHg TR Peak Gr.: 48.19 mmHg RVSP: 53.00 mmHg PA Pressure: 53.00 mmHg Left Ventricle The left ventricle is normal size. There is normal LV segmental wall motion. Moderate to severe concentric left ventricular hypertrophy. Left ventricular systolic function is normal. The left ventricular ejection fraction is within the normal range. LVEF is 50-55%. The left ventricular diastolic function is normal. Right Ventricle The right ventricle is normal size. The right ventricular systolic function is normal. Atria Left atrium is moderately dilated. The right atrium size is normal. Aortic Valve Mild aortic valve sclerosis. Trace aortic regurgitation. There is no aortic valvular stenosis. Mitral Valve There is mitral annular calcification. Trace mitral regurgitation. No evidence of mitral valve stenosis. Tricuspid Valve The tricuspid valve is normal in structure. Mild tricuspid regurgitation. Moderate pulmonary [place] [address] 2 D/M-MODE ECHOCARDIOGRAM Name: MARLON HOPKINS Room: [address]#: [id number] Admission: 11/16/19 Attend Phys: Merari Weber Discharge: Date of : 32 Date of Service: 11/17/19 1354 Report #: [id number] Pulmonic Valve The pulmonary valve is normal in structure. There is no pulmonic valvular regurgitation. Great Vessels The aortic root is normal in size. IVC is normal in size and collapses >50% with inspiration. Pericardium There is no pericardial effusion. <Conclusion> The left ventricle is normal size. Moderate to severe concentric left ventricular hypertrophy. Left ventricular systolic function is normal. The left ventricular ejection fraction is within the normal range. LVEF is 50-55%. The right ventricle is normal size. Left atrium is moderately dilated. The right atrium size is normal. Mild aortic valve sclerosis. Trace aortic regurgitation. There is no aortic valvular stenosis. There is mitral annular calcification. Trace mitral regurgitation. No evidence of mitral valve stenosis. The tricuspid valve is normal in structure. Mild tricuspid regurgitation. Moderate pulmonary hypertension. IVC is normal in size and collapses >50% with inspiration. There is no pericardial effusion. There is normal LV segmental wall motion. <ELECTRONICALLY SIGNED> By: Thompson Vazquez MD, FACC 11/17/19 1354 1354 1354 Thompson Vazquez MD, FACC /INF
[2019-11-17 16:00] VITALS: BP 122/62
[2019-11-18] VITALS: BP 128/64
[2019-11-18 02:06] LABS: GLYCOHEMOGLOBIN (HGB A1C) 9.6 % (4.8-5.6)
[2019-11-18 04:00] VITALS: BP 155/80
[2019-11-18 05:33] LABS: HEMATOCRIT 33.8 % (37.0-47.0); MCH 30.3 pg (26.0-34.0); MCHC 34.3 g/dL (28.0-37.0); MCV 88.3 fL (80.0-100.0); MPV 9.2 fl. (7.2-11.1); RBC 3.83 mil/uL (4.20-5.00); RDW-CV 14.4 % (10.5-14.5); WBC 6.7 thou/uL (4.0-11.0)
[2019-11-18 05:38] LABS: HEMOGLOBIN 11.6 gm/dL (12.0-15.0)
[2019-11-18 05:58] LABS: ALBUMIN 2.8 g/dL (3.4-5.0); CREATININE 1.4 mg/dL (0.6-1.3); MAGNESIUM 1.8 mg/dL (1.8-2.4); POTASSIUM 4.7 mmol/L (3.5-5.1); TOTAL BILIRUBIN 0.8 mg/dL (<0.1-1.0); TOTAL PROTEIN 6.5 g/dL (6.4-8.2)
[2019-11-18 06:04] LABS: CALCIUM 8.5 mg/dL (8.5-10.1)
[2019-11-18 07:45] VITALS: BP 140/77
[2019-11-18 12:00] VITALS: BP 143/92
[2019-11-18 16:00] VITALS: BP 116/53
[2019-11-18 19:50] VITALS: BP 144/76
[2019-11-19 08:00] VITALS: BP 141/75
[2019-11-19 09:24] LABS: CALCIUM 8.6 mg/dL (8.5-10.1); CREATININE 1.4 mg/dL (0.6-1.3); POTASSIUM 4.9 mmol/L (3.5-5.1)
[2019-11-19 16:18] VITALS: BP 127/59
[2019-11-19 21:00] VITALS: BP 181/87
[2019-11-20] VITALS: BP 115/72
[2019-11-20 05:33] LABS: HEMATOCRIT 37.4 % (37.0-47.0); HEMOGLOBIN 12.9 gm/dL (12.0-15.0); MCHC 34.4 g/dL (28.0-37.0); MCV 87.2 fL (80.0-100.0); MPV 8.8 fl. (7.2-11.1); RBC 4.29 mil/uL (4.20-5.00); RDW-CV 14.4 % (10.5-14.5); WBC 6.5 thou/uL (4.0-11.0)
[2019-11-20 06:44] LABS: CALCIUM 8.9 mg/dL (8.5-10.1); CREATININE 1.2 mg/dL (0.6-1.3); MAGNESIUM 1.8 mg/dL (1.8-2.4); POTASSIUM 4.2 mmol/L (3.5-5.1); TROPONIN-I LEVEL 0.08 ng/mL (<0.06)
[2019-11-20 08:00] VITALS: BP 178/93
[2019-11-20 12:00] VITALS: BP 123/63
[2019-11-20 20:00] VITALS: BP 126/61
[2019-11-21 04:00] VITALS: BP 150/80
[2019-11-21 08:00] VITALS: BP 132/72
[2019-11-21 17:23] VITALS: BP 154/84
[2019-11-21 20:00] VITALS: BP 156/78
[2019-11-22] VITALS: BP 158/71
[2019-11-22 08:00] VITALS: BP 140/85
[2019-11-22] MEDS ORDERED: ASPIRIN325 PO (09:06)
[2019-11-22] MEDS ORDERED: CIPRO500 MG PO (09:06)
[2019-11-22] MEDS ORDERED: GLUCOTROL XL2.5 MG PO (09:06)
[2019-11-22] MEDS ORDERED: TOPROL XL50 MG PO (09:06)
[2019-11-22] MEDS ORDERED: TRAZODONE HCL100 MG PO (09:06)
[2019-11-22] MEDS ORDERED: LIPITOR 40 MG T40 M1 PO (09:06)
[2019-11-22] MEDS ORDERED: LISINOPRIL40 MG PO (09:06)
[2019-11-22] MEDS ORDERED: NITROGLYCERIN0.4 MG SUBLING (09:06)
[2019-11-22 12:00] VITALS: BP 140/85
== END 2019-11-22 14:42 | DRG 280 ==
LOC: M.ERS 10:03 → M.TBA-ER 11:50 → M.2W 11:50
PROVIDERS: Emergency Medicine Emergency Medical Services; Internal Medicine; ADMIT Internal Medicine; ATTEND Internal Medicine
DX: I21.4 Non-ST elevation (NSTEMI) myocardial infarction (principal); G92 Toxic encephalopathy; I47.1 Supraventricular tachycardia; N39.0 Urinary tract infection, site not specified; E11.9 Type 2 diabetes mellitus without complications; E78.5 Hyperlipidemia, unspecified; I11.9 Hypertensive heart disease without heart failure; E78.00 Pure hypercholesterolemia, unspecified; Z90.710 Acquired absence of both cervix and uterus; Z90.49 Acquired absence of other specified parts of digestive tract; Z79.84 Long term (current) use of oral hypoglycemic drugs; Z88.0 Allergy status to penicillin; Z03.818 Encounter for observation for suspected exposure to other biological agents ruled out

== ENCOUNTER 2019-12-31 06:59 | Emergency (ER) | payer OTHER ==
[~2019-12-31] VITALS: Ht 170.2 cm; Wt 46.3 kg
--- NOTE | ~2019-12-31 | EMS ---
[facility] [address] [place] [address] EMS Patient Care Report Name: SALLY HOPKINS Room: [facility] Olivia#: [id number] Admission: 12/31/19 Attend Phys: Discharge: 12/31/19 Date of : 32 Report #: [id number] THIS REPORT FOR: //name// Report Transmitted: 12/31/2019 13:55 EMS Care Summary [facility] Incident [id number] @ 12/31/2019 06:03 Incident Location [address] [place] [address] Patient SALLY HOPKINS Female, 89 Years 1930 Patient Address [address] [place] [address] Patient History Diabetes,Hypertension (HTN),ST Elevation (STEMI) Myocardial Infarction,Hyperlipidemia,Urinary Tract Infection (UTI),Dysphagia,Supraventricular Tachycardia (SVT), Patient Allergies Metformin, Patient Medications Aspirin, Ibuprofen, Novolog, Atorvastatin, Loperamide, Cyclobenzaprine, Metoprolol, Cymbalta, Nitroglycerin, Augmentin, Trazodone, Acetaminophen, Lisinopril, Chief Complaint Cellulitis Disposition Transported No Lights/[place] Dispatch Reason Sick Person Transported To [facility] Narrative Dispatch: [facility] [address] [place] [address] EMS Patient Care Report Name: SALLY HOPKINS Room: [facility]#: [id number] Admission: 12/31/19 Attend Phys: Discharge: 12/31/19 Date of : 32 Report #: [id number] [facility] was dispatched to [facility] for a patient with cellulitis. [facility] responded from the station and arrived on scene without incident. Chief Complaint: Upon arrival to the scene, the patient, (Sally Hopkins) was found lying supine in bed. Sally's nursing staff advised that on 12/27/2019 she was diagnosed with conjunctivitis and cellulitis around the right side of her face. Sally had altered mentation and did not speak, which was normal for her per nursing staff. History of Present Illness: Sally developed conjunctivitis which then lead to cellulitis around the entirety of the right side of her face. Her right eye was swollen shut, and nursing staff advised that when the eye was opened, that pus would ooze out. Sally was prescribed Augmentin that began being administered on 12/30/2019. Sally's nurse called the nurse practitioner who decided sending her to the hospital was the best option. Assessment: Primary Assessment - Sally had a patent airway. Her respiratory effort was not noted to be labored. Her skin was pink, warm, and dry. Radial pulses were present. No abnormal disability was noted. Secondary Assessment - See assessment section for further information. Reason for Ambulance Transport: Nursing staff stated that they had to convince Sally to accept transport to the hospital, which they finally did. Treatments: Assessment was performed. Vital signs were obtained. Summary of Call: Sally started antibiotics one day prior to this incident. She had received two doses of the Augmentin that she had been prescribed. She was transferred from her bed to the cot, covered with blankets, all seat belts were applied and she was taken to the ambulance and loaded without incident. Non-emergency transport began. During transport, no changes in patient condition occurred. Report was called to the receiving hospital. Upon arrival to the receiving facility, Sally was unloaded and taken into the hospital without incident. She was transferred to the bed. Report was given to nursing staff, signatures were obtained, and patient care was transferred. Initial Vitals @06:20P: 66,R: 14,BP: 104/70,Pain: 0/10,GCS: 14,SpO2: 95,Revised Trauma: 12, [place] [address] EMS Patient Care Report Name: SALLY HOPKINS Room: [facility]#: [id number] Admission: 12/31/19 Attend Phys: Discharge: 12/31/19 Date of : 32 Report #: [id number] @06:47P: 65,R: 14,BP: 93/65,Pain: 0/10,GCS: 14,SpO2: 95,Revised Trauma: 12, @06:35P: 70,R: 12,BP: 90/66,Pain: 0/10,GCS: 14,SpO2: 96,Revised Trauma: 12, Assessments @06:20MENTAL:Time Oriented,Person Oriented,Place Oriented,Event Oriented,SKIN:HEENT:Head/Face: Drainage,Head/Face: Other,LUNG SOUNDS:ABDOMEN:PELVIS//GI:EXTREMITIES:Capillary Refill: Right Upper: < 2 Sec,PULSE:Radial: 2+ Normal,NEURO:@06:50MENTAL:Confused,Person Oriented,Time Oriented,Place Oriented,Event Oriented,SKIN:HEENT:Head/Face: No Abnormalities,Eyes: No Abnormalities,Neck/Airway: No Abnormalities,LUNG SOUNDS:ABDOMEN:PELVIS//GI:EXTREMITIES:Left Arm: No Abnormalities,Right Arm: No Abnormalities,Left Leg: No Abnormalities,Right Leg: No Abnormalities,PULSE:NEURO: Impression Skin infection Procedures @06:20ALS AssessmentResponse: UnchangedSucceeded Timeline 06:03,Call Received 06:03,Dispatched 06:06,En Route 06:11,On Scene 06:14,At Patient 06:20,ALS Assessment,Response: UnchangedSucceeded, 06:20,BP: 104/70 M,PULSE: 66,RR: 14 R,SPO2: 95 Ox,ETCO2: ,BG: ,PAIN: 0,GCS: 14, 06:25,Depart Scene 06:35,BP: 90/66 M,PULSE: 70,RR: 12 R,SPO2: 96 Ox,ETCO2: ,BG: ,PAIN: 0,GCS: 14, 06:47,BP: 93/65 M,PULSE: 65,RR: 14 R,SPO2: 95 Ox,ETCO2: ,BG: ,PAIN: 0,GCS: 14, 06:56,At Destination 07:33,Call Closed Disclaimer [email or web address] Copyright 2020 [employer] This EMS Care Summary contains data elements from the applicable legal record (which may be displayed differently). It is designed to provide pertinent information for the following purposes: continuity of care, clinical quality, and state data reporting. The complete legal record is available to ED staff and administrators of the receiving hospital in [email or web address] Patient Tracker. All data is provided "as is."
[~2019-12-31 06:59] MED LIST changes: +ASPIRIN325 PO; +CIPRO500 MG PO; +GLUCOTROL XL2.5 MG PO; +LIPITOR 40 MG T40 M1 PO; +LISINOPRIL40 MG PO; +METFORMIN HCL500 M3 PO; +NITROGLYCERIN0.4 MG SUBLING; +TOPROL XL50 MG PO; +TRAZODONE HCL100 MG PO
[2019-12-31] MEDS ORDERED: TYLENOL325 MG PO (07:09)
[2019-12-31] MEDS ORDERED: LOPERAMIDE 2 MG2 MG PO (07:09)
[2019-12-31] MEDS ORDERED: FLEXERIL PO (07:10)
[2019-12-31] MEDS ORDERED: BLEPH-105 ML OPHTHALMIC (07:10)
[2019-12-31] MEDS ORDERED: PROBIOTIC1 EAC7 PO (07:10)
[2019-12-31] MEDS ORDERED: IBUPROFEN 600600 M1 PO (07:11)
[2019-12-31] MEDS ORDERED: AUGMENTIN 875-1 EACH PO (07:11)
[2019-12-31] MEDS ORDERED: NOVOLOG100 UNIT/M SUBQ (07:12)
[2019-12-31] MEDS ORDERED: CYMBALTA30 MG PO (07:13)
[2019-12-31 09:14] LABS: ABSOLUTE LYMPHOCYTES 0.8 thou/uL (0.8-5.3); ABSOLUTE MONOCYTES 0.7 thou/uL (0.0-1.2); BASOPHILS 0.3 %; EOSINOPHILS 0.3 %; HEMOGLOBIN 13.7 gm/dL (12.0-15.0); LYMPHOCYTES 9.2 %; MCH 29.3 pg (26.0-34.0); MCHC 34.3 g/dL (28.0-37.0); MCV 85.4 fL (80.0-100.0); MONOCYTES 7.7 %; MPV 8.4 fl. (7.2-11.1); NUCLEATED RBCS 0 /100WBC; PLATELET COUNT* 200 thou/uL (150-400); POLYS 82.5 %; RBC 4.68 mil/uL (4.20-5.00); WBC 8.5 thou/uL (4.0-11.0)
[2019-12-31 09:18] LABS: CALCIUM 8.9 mg/dL (8.5-10.1); CREATININE 1.2 mg/dL (0.6-1.3); POTASSIUM 3.9 mmol/L (3.5-5.1)
[2019-12-31 09:22] LABS: ALBUMIN 2.9 g/dL (3.4-5.0); TOTAL BILIRUBIN 0.6 mg/dL (<0.1-1.0); TOTAL PROTEIN 7.6 g/dL (6.4-8.2)
[2019-12-31 09:23] LABS: PROTIME 10.3 Seconds (9.20-11.50)
[2019-12-31 11:50] VITALS: BP 153/67
== END 2019-12-31 11:50 | disposition short-term general hospital (02) ==
LOC: M.ERS 06:59
PROVIDERS: Personal Emergency Response Attendant
DX: N17.9 Acute kidney failure, unspecified (principal); Z20.828 Contact with and (suspected) exposure to other viral communicable diseases; E11.65 Type 2 diabetes mellitus with hyperglycemia; B02.9 Zoster without complications; I10 Essential (primary) hypertension; I25.2 Old myocardial infarction; E78.5 Hyperlipidemia, unspecified; Z88.0 Allergy status to penicillin; Z88.8 Allergy status to other drugs, medicaments and biological substances; Z79.899 Other long term (current) drug therapy; Z79.82 Long term (current) use of aspirin